=== PATIENT | female | born 1960 | race Caucasian/White ===

== ENCOUNTER 2023-12-01 13:09 | Emergency (ER) | payer MEDICARE, SELFPAY ==
[2023-12-01 13:25] VITALS: BP 133/58; PULSE 88; RESP 18; TEMP 36.7; O2SAT 96
--- NOTE | 2023-12-01 14:17 | ED.EAR ---
HPI - Ear Problem General Chief complaint: Ear Stated complaint: not eating / ear pain Time Seen by Provider: 12/01/23 14:17 Source: patient, RN notes reviewed and old records reviewed Mode of arrival: ambulatory Limitations: no limitations History of Present Illness HPI Narrative: 63-year-old female presents to [facility] with complaints of left ear pain radiating into her neck since Wednesday 5-6 days ago with cough and just feels bad and can't eat. Patient reports that she quit smoking on Wednesday also. Patient reports that she has taken some Tylenol for her pain which didn't help. Patient denies any known fever, no body aches,or headache pain. MD Complaint: ear pain and other (cough,feels so bad she states she can't eat) Location: left ear Duration: constant Severity: severe Discharge from ear: Reports no Treatment prior to arrival: oral analgesic (Tylenol) Related Data Home Medications Medication Instructions Recorded Confirmed celecoxib 100 mg capsule mg 12/01/23 empagliflozin 25 mg tablet mg 12/01/23 (Jardiance) lisinopril 10 mg tablet mg 12/01/23 lovastatin 40 mg tablet mg 12/01/23 metformin 500 mg tablet,extended mg PO 12/01/23 release 24 hr Allergies Allergy/AdvReac Type Severity Reaction Status Date / Time No Known Allergies Allergy Verified 12/01/23 13:15 Review of Systems Review of Systems: CONSTITUTIONAL: Reports malaise,no chills, sweats, no fever. EYES: Denies visual changes, redness, or discharge. ENT: Reports no rhinorrhea, congestion, sinus pain, positive for left otalgia and denies any sore throat. CARDIOVASCULAR: Denies chest pain, palpitations, or edema. RESPIRATORY: Reports cough.? Denies dyspnea. GASTROINTESTINAL: Denies abdominal pain, nausea, vomiting, diarrhea SKIN: Denies rash or itching. MUSCULOSKELETAL: Denies myalgia. NEUROLOGIC: Denies headache. All systems reviewed & are unremarkable except as noted in HPI and below PMFSH Past Medical History Medical History (Updated 12/02/23 @ 15:24 by Dana Mendosa NP) Arthritis Diabetes Hyperlipidemia Hypertension Surgical History Surgical History (Updated 12/02/23 @ 15:17 by Dana Mendosa NP) H/O cone biopsy of cervix H/O: hysterectomy History of arthroscopic knee surgery Hx of cholecystectomy Social History Social History (Updated 12/02/23 @ 15:18 by Dana Mendosa NP) Smoking status: Former smoker Tobacco type: cigarettes Alcohol intake: unknown Substance use: unknown Gender identity (if verbalized by the patient): Female Comments At time of signature, agree with nursing past medical, surgical, social and family history. There is no relevant family history pertinent to the presenting complaint Exam Narrative: GENERAL: Well-appearing, well-nourished, and in no acute distress. HEAD: Normocephalic EYES: PERRLA, conjunctivae clear ENT: Nares clear, turbinates edematous and erythematous, clear discharge. Mucous membranes moist.Left TM red and bulging, Right TM pearly carranza with dull light reflex ; no tragal tenderness. Oropharynx erythematous without lesions. Tonsils not enlarged and without exudate, no drooling, no hoarseness, no trismus, uvula midline.post nasal drainage. NECK: Supple. No lymphadenopathy CHEST: Clear to auscultation, breath sounds equal. No wheezing, rhonchi, rales, or stridor. No respiratory distress, speaks in full sentences.cough noted SAO2 96% on room air HEART: Regular rate and rhythm. No murmur heard. SKIN: Warm, dry, no rash. NEURO: Alert and oriented x3. PSYCH: Normal mood and affect Course Course Emergency Course: Patient is aware of diagnosis, understands and agrees to treatment plan.? Anticipatory guidance given.? Patient agrees to follow-up as directed and is aware of reasons to seek care at the emergency department. Portions of this record may have been created with voice recognition software Level of Care: Express
== END 2023-12-01 14:34 | disposition home or self-care (01) ==
PROVIDERS: Emergency Provider Registered Nurse; PCP Family Medicine
DX: H66.92 Otitis media, unspecified, left ear (principal); Z87.891 Personal history of nicotine dependence; M19.90 Unspecified osteoarthritis, unspecified site; E78.5 Hyperlipidemia, unspecified; I10 Essential (primary) hypertension; E11.9 Type 2 diabetes mellitus without complications
CPT/HCPCS: 99213; G0463